=== PATIENT | female | born 1995 | race Caucasian/White ===

== ENCOUNTER 2021-12-22 15:41 | Emergency (ER) | payer OTHER ==
[~2021-12-22] VITALS: Ht 160 cm; Wt 68.0 kg
[2021-12-22] MEDS ORDERED: LIDOCAINE 1% INJ 10 ML VIAL INJ ONE (17:00)
[2021-12-22] MEDS ORDERED: LIDOCAINE 1% INJ 20 ML VIAL ONE (17:14)
[2021-12-22] MEDS ORDERED: TRANEXAMIC ACID 100 MG/ML 10 ML INJECTION ONE (17:54)
[2021-12-22] MEDS ORDERED: L.E.T. SOLUTION 3 ML SYR ONE (17:59)
[2021-12-22] MEDS ORDERED: TETANUS,DIPTH,PERTUSS P/F (BOOSTRIX) 0.5 ML VIAL IM ONE (18:30)
--- NOTE | 2021-12-22 18:39 | ED Upper Extremity ---
General Chief Complaint: Upper Extremity Stated Complaint: RIGHT INDEX FINGER LAC Nursing Triage Note: Pt reports cutting right index finger on mandolin slicer prior to arrival. Finger wrapped in two cloths, pressure being applied by pt. Source: patient Exam Limitations: no limitations History of Present Illness Date Seen by Provider: Dec 22, 2021 Allergies and Home Medications Allergies Coded Allergies: Sulfa (Sulfonamide Antibiotics) (Verified Allergy, Unknown, 12/22/21) hydrocodone (Verified Adverse Reaction, Unknown, Vomiting, 12/22/21) Past Ppolchx-Ktgcbx-Lqzvft Hx Patient Social History Tobacco Use?: No Substance use?: No Alcohol Use?: No Pt feels they are or have been: No Immunizations Up To Date First/Initial COVID19 Vaccinat: unk Second COVID19 Vaccination Pepe: unk Past Medical History Surgery/Hospitalization HX: HTN Physical Exam Vital Signs Vital Signs - First Documented 12/22/21 16:04 Temp 37.2 Pulse 97 Resp 20 B/P (MAP) 162/105 (124) Pulse Ox 99 O2 Delivery Room Air Capillary Refill : Height, Weight, BMI Height: '" Weight: lbs. oz. kg; 26.00 BMI Method: Progress/Results/Core Measures Results/Orders My Orders Orders - SHELBI WEBB MD Lidocaine 1% Inj 10 Ml (Xylocaine 1% Inj (12/22/21 17:00) Lidocaine 1% Inj 20 Ml (Xylocaine 1% Inj (12/22/21 17:14) Tranexamic Acid Injection (Cyklokapron I (12/22/21 17:54) Let Solution (Let Solution) (12/22/21 17:59) Dipht,Pertuss(Acell),Tet Adult (Boostrix (12/22/21 18:30) Medications Given in ED Current Medications Medications Dose Ordered Sig/Aba Route Start Time Stop Time Status Last Admin Dose Admin Lidocaine HCl 10 ml ONCE ONCE INJ 12/22/21 17:00 12/22/21 17:01 DC 12/22/21 17:20 10 ML Tetracaine/ Epinephrine/ Lidocaine 3 ml STK-MED ONCE .ROUTE 12/22/21 17:59 12/22/21 18:01 DC 12/22/21 18:05 3 ML Tranexamic Acid 1,000 mg STK-MED ONCE .ROUTE 12/22/21 17:54 12/22/21 17:58 DC 12/22/21 18:05 1,000 MG Vital Signs/I&O 12/22/21 16:04 Temp 37.2 Pulse 97 Resp 20 B/P (MAP) 162/105 (124) Pulse Ox 99 O2 Delivery Room Air Blood Pressure Mean: 124 Departure Impression Primary Impression: Avulsion of skin of finger Qualified Codes: S61.209A - Unspecified open wound of unspecified finger without damage to nail, initial encounter Disposition: 01 HOME, SELF-CARE Condition: Improved Departure-Patient Inst. Decision time for Depature: 18:37 Referrals: NO,LOCAL PHYSICIAN (PCP/Family) Primary Care Physician Patient Instructions: SKIN AVULSION Add. Discharge Instructions: Keep the wound clean and dry except for normal handwashing and showering. Avoid submersion. Also avoid any oil-based products such as alcohol, hand lotion, ad hesives, etc. as they may loosen or soften the glue. Monitor for signs of infection such as increasing redness, increasing swelling, puslike drainage, or fever. Return to care if you notice the symptoms. Protect your fingertip as much as possible over the next week to avoid disrupting the glue. You may use the splint provided. You may also use a Band- Aid bandage if you are able to do so without contacting the glue with the adhesive. If bleeding returns, apply direct pressure by squeezing her finger with the other hand and elevating for 15 to 30 minutes. If you are unable to control bleeding, you may return for further evaluation. All discharge instructions reviewed with patient and/or family. Voiced understanding. SHELBI WEBB MD Dec 22, 2021 18:39
[2021-12-22 18:47] VITALS: BP 162/105
== END 2021-12-22 18:47 | disposition home or self-care (01) ==
LOC: ER 15:45
DX: S61.200A Unspecified open wound of right index finger without damage to nail, initial encounter (principal); Z23 Encounter for immunization; W26.8XXA Contact with other sharp object(s), not elsewhere classified, initial encounter
CPT/HCPCS: 29130; 90715